=== PATIENT | male | born 1960 | race Caucasian/White ===

== ENCOUNTER 2016-04-08 11:18 | Inpatient (IN) ==
--- NOTE | 2016-04-07 21:07 | Discharge Summary ---
<Shilpa Salguero - Last Filed: 04/07/16 21:05> Date of Encounter: 04/11/16 - Discharge Diagnosis (1) Hip arthritis Priority: Primary Status: Acute (2) HTN (hypertension) Priority: Secondary Status: Chronic Qualifiers: Hypertension type: essential hypertension Qualified Code(s): I10 - Essential (primary) hypertension (3) Tobacco abuse Priority: Secondary Status: Chronic (4) Obesity Priority: Secondary Status: Acute Qualifiers: Obesity type: unspecified obesity type Obesity severity: unspecified obesity severity Qualified Code(s): E66.9 - Obesity, unspecified - Discharge Medications Home Medications: Naproxen Sodium [Aleve] 220 mg PO PRN PRN 12/20/15 [History] Aspirin Enteric Coated [Aspirin EC] 325 mg PO DAILY #21 tablet.dr 04/07/16 [Rx] OxyCODONE Immed Rel [Roxicodone 5 MG] 5 - 10 mg PO Q6HR PRN #40 tablet 04/07/16 [Rx] Amlodipine Besylate 10 mg PO DAILY 04/08/16 [History] Glucosamn/[place]/C/[facility]/[place] [[facility] Glucosamine Chondroitin Tb] 1 tab PO DAILY 04/08/16 [History] Lisinopril [Zestril] 40 mg PO DAILY 04/08/16 [History] Allergies/Adverse Reactions: Allergies No Known Allergies Allergy (Verified 12/20/15 09:33) Primary care physician: Kait Quiñones CNP - Patient Status Disposition: Home, Self-Care Condition: Good - Discharge Instructions Follow Up With: Zan Rutledge MD [Partnered Physician] - 05/07/16 9:10 am Shilpa Salguero PAC [Physician Hand Roller] - 04/18/16 9:30 am Kait Quiñones CNP [Primary Care Provider] - 05/14/16 9:00 am - Hospital Course Hospital course: Mr. Newman is a 55 year old male - Time Spent with Patient Total time spent providing and/or coordinating discharge services: <Zan Rutledge - Last Filed: 04/10/16 08:02> Date of Encounter: 04/10/16 Time of Encounter: 08:02 - Discharge Diagnosis (1) Hip arthritis Priority: Primary Status: Acute (2) Obesity Priority: Secondary Status: Acute Qualifiers: Obesity type: unspecified obesity type Obesity severity: unspecified obesity severity Qualified Code(s): E66.9 - Obesity, unspecified (3) HTN (hypertension) Priority: Secondary Status: Chronic Qualifiers: Hypertension type: essential hypertension Qualified Code(s): I10 - Essential (primary) hypertension (4) Tobacco abuse Priority: Secondary Status: Chronic Primary care physician: Kait Quiñones CNP - Patient Status Functional capacity at discharge: uses cane/walker Overall status at discharge: patient is progressing back to baseline - Hospital Course Hospital course: Mr. Newman is a 55 year old male The patient had an uneventful postoperative course. They received antibiotics and physical therapy and were discharged in stable condition. There will follow -up in the office in 2 weeks. Aspirin DVT prophylaxis - Time Spent with Patient Total time spent providing and/or coordinating discharge services:
[2016-04-08] MEDS ORDERED: CeFAZolin Pre 2,000 MG/100 ML 2,000 MG/100 ML BAG IVPB ONE (11:55)
[2016-04-08] MEDS ORDERED: Ringers Solution, Lactated 1,000 ML IVC SCH ×2 (12:00→17:25)
--- NOTE | 2016-04-08 12:03 | History & Physical Report ---
Date of Encounter: 04/08/16 Time of Encounter: 12:03 24 Hour HP Update - Instructions Instructions: If the History and Physical is less than 30 days old and was completed prior to A.M. admission and or procedure and has NOT been updated on calendar day of procedure please complete this update prior to performing procedure. - Update Patient reports changes in Medical Condition: No Changes in assessment/condition: No Changes in Medication: No Preop tests/diagnostics Reviewed: Yes Surgery Remains Indicated: Yes Consent for Planned Operative Procedure(s) Verified: Yes - Pre-Operative Checklist Preoperative Checklist Indicated: No Prophylactic Antibiotic Ordered: Yes Is VTE Prophylaxis Indicated?: Yes
[2016-04-08] MEDS ORDERED: Albuterol 2.5 MG/3 ML NEBULIZER IH ONE (12:10)
[2016-04-08] MEDS ORDERED: Albuterol 2.5 MG/3 ML NEBULIZER ONE (12:17)
--- NOTE | 2016-04-08 13:06 | Anesthesia Evaluation PreOp ---
Date of Encounter: 04/08/16 Time of Encounter: 12:35 - Past History Planned Operation: Left Total Hip Arthroplasty Cardiac History: HTN Pulmonary History: Smoker (38 years), Snore PHARMACY TECHNICIAN ASSISTANT History: Denies Any Significant HX Other Medical History: Denies Any Significant HX Anesthesia History: Past Anesthesia (no prior surgery) Alcohol Use: none Drug use: none Medications and Allergies Naproxen Sodium [Aleve] 220 mg PO PRN PRN 12/20/15 [History] Aspirin Enteric Coated [Aspirin EC] 325 mg PO DAILY #21 tablet.dr 04/07/16 [Rx] OxyCODONE Immed Rel [Roxicodone 5 MG] 5 - 10 mg PO Q6HR PRN #40 tablet 04/07/16 [Rx] Amlodipine Besylate 10 mg PO DAILY 04/08/16 [History] Glucosamn/[place]/C/[place] [[facility] Glucosamine Chondroitin Tb] 1 tab PO DAILY 04/08/16 [History] Lisinopril [Zestril] 40 mg PO DAILY 04/08/16 [History] Allergies No Known Allergies Allergy (Verified 12/20/15 09:33) - Meds/Allergy Pre-op Review Medications Reviewed: Yes Allergies Reviewed: Yes Beta Blockers on Current Med List: No Anesthesia Results - Labs Laboratory Tests 03/28/16 03/28/16 03/28/16 10:20 10:20 10:20 WBC 12.6 H Hgb 16.8 Hct 50.1 Plt Count 603 H PT 11.6 INR 1.1 APTT 35.9 Sodium 141 Potassium 4.2 BUN 19 Creatinine 0.90 - Imaging EKG: report reviewed (03/28/2016 SR, NSST abnormality) Anesthesia Exam O2 Sat Height 1.7 m Height 1.7 m Height 1.7 m Weight 97.976 kg Weight 97.976 kg Weight 97.976 kg O2 Sat by Pulse Oximetry 95 O2 Sat by Pulse Oximetry 95 O2 Sat by Pulse Oximetry 95 Vital Signs Temp Pulse Resp BP Pulse Ox 97.9 F 71 18 148/89 95 04/08/16 11:37 04/08/16 11:37 04/08/16 11:37 04/08/16 11:37 04/08/16 11:37 Height: 5'7'' Weight: 216 lbs NPO (# of Hours): 8 Pain Scale: 0 Pain Scale Used: Numeric (1 - 10) - HEENT Pupil (Motor): EOMI Mallampati: II Teeth: Missing, Poor dentition (loose lower front tooth) Oral Opening: Greater than 3 - PHARMACY TECHNICIAN ASSISTANT LOC: Oriented PHARMACY TECHNICIAN ASSISTANT Motor: Normal RUE, Normal LUE, Normal RLE, Normal LLE, Normal Face PHARMACY TECHNICIAN ASSISTANT Sensory: Normal: RUE, LUE, RLE, LLE, Face - Cardiac Rhythm: Regular Murmur: None - Pulmonary Breath Sounds: bilateral Clear Respiratory Effort: Symmetrical Anesthesia Assess/Plan ASA Score: 2 Modified Vish Scale for Level of Consciousness: Cooperative, oriented, and tranquil Anesthetic Plan: General Monitoring Plan: Standard Monitors Recovery Plan: PACU
[2016-04-08] MEDS ORDERED: *HR* Propofol 200 MG/20 ML VIAL IVP ONE (13:55)
[2016-04-08] MEDS ORDERED: *HR* Rocuronium Bromide 50 MG/5 ML VIAL ONE (13:55)
[2016-04-08] MEDS ORDERED: Dexamethasone 4 MG/ML VIAL ONE (13:55)
[2016-04-08] MEDS ORDERED: Lidocaine -MPF 4% 5 ML AMPUL ONE (13:55)
[2016-04-08] MEDS ORDERED: Ondansetron 4 MG/2 ML VIAL ONE (13:55)
[2016-04-08] MEDS ORDERED: *HR* FentaNYL (PF) 100 MCG/2 ML VIAL ONE ×3 (13:55→15:32)
[2016-04-08] MEDS ORDERED: *HR* Succinylcholine 200 MG/10 ML VIAL IVP ONE (13:55)
[2016-04-08] MEDS ORDERED: *HR* Promethazine 25 MG/ML VIAL IVP PRN (13:58)
[2016-04-08] MEDS ORDERED: *HR* Labetalol 100 MG/20 ML MDV IVP PRN (13:58)
[2016-04-08] MEDS ORDERED: *HR* Morphine 10 MG/ML VIAL ONE ×2 (15:26→15:31)
--- NOTE | 2016-04-08 16:02 | Orthopedic Operative Note ---
Date of procedure: 04/08/16 Pre-op diagnosis: Left hip arthritis Post-op diagnosis: same Procedure: Procedure: Left Total Hip Replacment Estimated blood loss: 200 cc Hardware: Biomet DM Cup: 56 G7 fin cup Femoral size 12 echo full profile lateralized stem Head: +6 head with Nancy Procedural Notes: Grade 4 arthritic changes femoral head acetabular socket. Operative procedure: The patient was brought to the operating room and placed on the operating room table. After general anesthesia was administered the patient was placed in the lateral decubitus position with the operative leg up. All pressure points were padded appropriately and the head was stabilized in the neutral position. The operative extremity was prepped and draped in the sterile surgical fashion patient received IV antibiotic prior to skin incision. A standard posterior approach is made to the operative hip, the incision was made through the skin and subcutaneous tissue hemostasis was obtained with Bovie cautery. Using careful sharp dissection the fascia was identified and incised exposing the external rotators. The external rotators were released off the greater trochanter and tagged with #2 FiberWire suture. The capsule was T'd open and the hip was brought into internal rotation. Patient noted to have grade 4 arthritic changes femoral head. The femoral neck cut was made at the appropriate level. An anterior capsulotomy was performed for the anterior retractor. Soft tissues removed from the acetabulum. Patient noted to have grade 4 arthritic changes acetabulum. Acetabulum was first reamed medially, and then reamed in 15 degrees of anteversion and 45 degrees off the horizontal. It was reamed up to the appropriate size 56 The appropriate-sized 56 acetabular cup was impacted in place in 15 degrees of anteversion and 45 degrees off the horizontal. This had good fit and fixation. The hip was brought back in to internal rotation and prepared with the box gluer followed by the canal finder followed by broaching process in 20 degrees anteversion. It was broached up to the appropriate size 12. The femoral implant was impacted in place in 20 degrees of anteversion. Trial reduction found the hip to be stable with +6 head and Nancy. The trials were removed and the real implants were impacted in place. The hip was reduced, patient had apparent equal leg lengths. The hip had excellent stability with forward flexion to 90 degrees adduction of 30 degrees and internal rotation of 60 degrees. The hip had no shuck. The hips after 2 minutes with a Betadine saline solution. It was irrigated out with 2 L of pulse irrigation. The external rotators were reattached to drill holes in the greater trochanter. Fascia was closed with a running #2 PDS suture. The deep tissue was irrigated and closed deep with #1 PDS suture superficially with 0 PDS suture and skin was closed with Dermabond and skin maverick. The patient was placed in a sterile dressing and abduction pillow. The patient was extubated and transferred to the recovery room in stable condition. Anesthesia: GETA Surgeon: Zan Rutledge Condition: stable Disposition: PACU
[2016-04-08] MEDS: *HR* HYDROmorphone (PF) 1 MG/ML SYRINGE IVP PRN ×3 (16:30→16:45)
[2016-04-08] MEDS ORDERED: *HR* HYDROmorphone (PF) 1 MG/ML SYRINGE ONE ×2 (16:32→16:47)
--- NOTE | 2016-04-08 16:58 | Anesthesia Evaluation Post Op ---
Date of Encounter: 04/08/16 Time of Encounter: 16:57 - Vital Signs Vital Signs: Vital Signs/O2 Sat, Most Current Temp Pulse Resp BP Pulse Ox 97.5 F L 77 16 167/85 95 04/08/16 16:51 04/08/16 16:51 04/08/16 16:51 04/08/16 16:51 04/08/16 16:51 - Lungs Lungs: Clear Ascult./Percussion - Airway Airway: Non-obstructed - Cardiovascular Regular Rate - Mental Status Mental Status: Alert & Oriented, Answers Appropriately - Pain Pain Scale: 4 Pain Scale used: Numeric (1 - 10) - Nausea Vomiting Nausea Vomiting: Not Present - Hydration Hydration: NPO, Has not voided - Discharge PostOp Status: Transfer Patient to floor
[2016-04-08 17:00] LABS: Hematocrit 46.4 % (37.5-50.1); Hemoglobin 15.2 g/dL (12.9-16.9)
[2016-04-08] MEDS ORDERED: Acetaminophen 325 MG TABLET PO PRN (17:25)
[2016-04-08] MEDS ORDERED: Sennosides 8.6 MG TABLET PO PRN (17:25)
[2016-04-08] MEDS ORDERED: Temazepam 15 MG CAPSULE PO PRN (17:25)
[2016-04-08] MEDS ORDERED: *HR* OxyCODONE Immed Rel 5 MG TABLET PO PRN (17:25)
[2016-04-08] MEDS ORDERED: Naloxone 0.4 MG/ML INJ IVP PRN (17:25)
[2016-04-08] MEDS ORDERED: *HR* HYDROmorphone (PF) 1 MG/ML SYRINGE IVP PRN (17:25)
[2016-04-08] MEDS ORDERED: MOM Conc 10 ML UD.LIQ PO PRN (17:25)
[2016-04-08] MEDS ORDERED: Ondansetron 4 MG/2 ML VIAL IVP PRN (17:25)
[2016-04-08] MEDS ORDERED: NON-FORMULARY MEDICATION 1 EACH EACH (Naproxen Sodium [Aleve] 220 MG) PO PRN (17:25)
[2016-04-08] MEDS: Ascorbic Acid 500 MG TABLET PO SCH (17:47)
[2016-04-08] MEDS ORDERED: *HR* Enoxaparin 30 MG/0.3 ML SYRINGE SQ SCH (18:00)
[2016-04-08] MEDS: ceFAZolin 2,000 MG in D5% in Water 100 ML IVPB SCH ×2 (18:16→23:29)
[2016-04-08] MEDS: *HR* Enoxaparin 30 MG/0.3 ML SYRINGE SQ SCH (18:17)
[2016-04-09] MEDS: *HR* OxyCODONE Immed Rel 5 MG TABLET PO PRN ×2 (05:29→17:34)
[2016-04-09] MEDS: *HR* Enoxaparin 30 MG/0.3 ML SYRINGE SQ SCH ×2 (05:29→17:32)
[2016-04-09 06:03] LABS: Hematocrit 42.9 % (37.5-50.1); Hemoglobin 14.2 g/dL (12.9-16.9)
[2016-04-09 06:12] LABS: BUN/Creatinine Ratio 18 (6-26); Blood Urea Nitrogen 23 mg/dL (8-26); Calcium 8.8 mg/dL (8.6-10.8); Carbon Dioxide 25 mEq/L (19-29); Chloride 104 mEq/L (98-109); Glucose 107 mg/dL (70-99); Osmolality,Calculated 286 (280-300); Potassium 5.2 mEq/L (3.5-4.5); Sodium 136 mEq/L (136-145); eGFR For African Americans > 60 (> 60); eGFR For Non-African Americans 59 (> 60)
--- NOTE | 2016-04-09 06:19 | Orthopedics Progress Note ---
Date of Encounter: 04/09/16 Time of Encounter: 06:19 - Assessment and Plan (1) Hip arthritis Current Visit: Yes Status: Acute (2) Obesity Current Visit: Yes Status: Acute Qualifiers: Obesity type: unspecified obesity type Obesity severity: unspecified obesity severity Qualified Code(s): E66.9 - Obesity, unspecified (3) HTN (hypertension) Current Visit: Yes Status: Chronic Qualifiers: Hypertension type: essential hypertension Qualified Code(s): I10 - Essential (primary) hypertension (4) Tobacco abuse Current Visit: Yes Status: Chronic Subjective Interval history: Patient was seen this morning doing well without complaints. Afebrile vital signs stable. Operative extremity: Neurovascularly intact Dressing clean dry and intact Calves nontender Assessment and plan: Continue with postoperative care Hematocrit 43 Objective Vital signs: Vital Signs Temp Pulse Resp BP Pulse Ox 04/09/16 03:44 97.7 F 63 16 158/80 95 04/09/16 03:00 97.7 F 67 13 120/72 97 04/09/16 00:12 97.7 F 67 13 120/72 97 04/08/16 22:00 96 04/08/16 20:45 98.1 F 66 12 122/72 96 04/08/16 20:14 97.6 F 61 9 120/72 95 04/08/16 19:45 99.1 F 65 12 118/79 95 04/08/16 18:26 99.0 F 67 16 111/69 94 L 04/08/16 18:01 98.8 F 63 16 122/63 95 04/08/16 17:30 98.7 F 70 16 130/73 95 04/08/16 17:11 97.5 F L 66 16 154/80 97 04/08/16 17:01 70 16 142/83 98 04/08/16 16:51 97.5 F L 77 16 167/85 95 04/08/16 16:41 77 16 154/83 96 04/08/16 16:31 80 16 161/100 95 04/08/16 16:21 97.5 F L 65 14 131/72 96 04/08/16 12:11 97.9 F 71 18 148/89 95 04/08/16 11:37 97.9 F 71 18 148/89 95 Intake and Output 04/08/16 04/08/16 04/09/16 15:59 23:59 07:59 Intake Total 100 / 100 100 / 100 800 / 800 Output Total 200 / 200 650 / 650 Balance 100 / 100 -100 / -100 150 / 150 Intake: IV Fluids 100 / 100 100 / 100 Ancef 2,000 MG In 100 / 100 Dextrose 5% 100 ML @ 200 mls/hr IVPB Q8HR ABISAI Rx#: [id number] Ancef Premix 2,000 MG/100 100 / 100 ML 2,000 mg In 100 ml @ 200 mls/hr IVPB PREOP ONE Rx#:[id number] Oral 800 / 800 Output: Urine 650 / 650 Estimated Blood Loss 200 / 200 Other: Weight 97.976 kg - Labs CBC & BMP: 04/09/16 05:25 04/09/16 05:25 Labs: Abnormal lab results Potassium 5.2 mEq/L (3.5-4.5) H 04/09/16 05:25 Creatinine 1.26 mg/dL (0.72-1.25) H 04/09/16 05:25 Est GFR (Non-Af Amer) 59 (> 60) L 04/09/16 05:25 Glucose 107 mg/dL (70-99) H 04/09/16 05:25 - VTE Documentation of Mechanical Device: Venous foot pump, device Consult Discharge Plan - Plan Referrals: Kait Quiñones CNP [Primary Care Provider] - 05/14/16 9:00 am
[2016-04-09] MEDS: Ascorbic Acid 500 MG TABLET PO SCH ×2 (09:31→17:32)
[2016-04-09] MEDS: amLODIPine 5 MG TABLET PO SCH (09:31)
[2016-04-09] MEDS: Lisinopril 20 MG TABLET PO SCH (09:31)
[2016-04-09] MEDS: Multivit/Ca/Min/Fe/FA 1 TAB TABLET PO SCH (09:32)
[2016-04-09] MEDS: (Glucosamn/Condroitn/C/Mn/Boron [Cvs Glucosamine Chon PO SCH (09:34)
[2016-04-10] MEDS: *HR* OxyCODONE Immed Rel 5 MG TABLET PO PRN ×2 (02:15→07:42)
[2016-04-10] MEDS: *HR* Enoxaparin 30 MG/0.3 ML SYRINGE SQ SCH (05:39)
[2016-04-10 07:00] LABS: Hematocrit 43.1 % (37.5-50.1); Hemoglobin 14.4 g/dL (12.9-16.9)
[2016-04-10 07:07] VITALS: BP 148/86
[2016-04-10 07:16] LABS: BUN/Creatinine Ratio 21 (6-26); Blood Urea Nitrogen 22 mg/dL (8-26); Calcium 9.3 mg/dL (8.6-10.8); Carbon Dioxide 22 mEq/L (19-29); Chloride 105 mEq/L (98-109); Glucose 102 mg/dL (70-99); Osmolality,Calculated 288 (280-300); Potassium 4.3 mEq/L (3.5-4.5); Sodium 137 mEq/L (136-145); eGFR For African Americans > 60 (> 60); eGFR For Non-African Americans > 60 (> 60)
[2016-04-10] MEDS: amLODIPine 5 MG TABLET PO SCH (07:43)
[2016-04-10] MEDS: Lisinopril 20 MG TABLET PO SCH (07:44)
[2016-04-10] MEDS: Ascorbic Acid 500 MG TABLET PO SCH (07:44)
[2016-04-10] MEDS: Multivit/Ca/Min/Fe/FA 1 TAB TABLET PO SCH (07:44)
[2016-04-10] MEDS: (Glucosamn/Condroitn/C/Mn/Boron [Cvs Glucosamine Chon PO SCH (07:45)
--- NOTE | 2016-04-10 08:03 | Orthopedics Progress Note ---
Date of Encounter: 04/10/16 Time of Encounter: 08:02 - Assessment and Plan (1) Hip arthritis Current Visit: Yes Status: Acute (2) Obesity Current Visit: Yes Status: Acute Qualifiers: Obesity type: unspecified obesity type Obesity severity: unspecified obesity severity Qualified Code(s): E66.9 - Obesity, unspecified (3) HTN (hypertension) Current Visit: Yes Status: Chronic Qualifiers: Hypertension type: essential hypertension Qualified Code(s): I10 - Essential (primary) hypertension (4) Tobacco abuse Current Visit: Yes Status: Chronic Subjective Interval history: Patient was seen this morning doing well without complaints. Afebrile vital signs stable. Operative extremity: Neurovascularly intact Dressing clean dry and intact Calves nontender Assessment and plan: Continue with postoperative care Hematocrit 43 discharged today Objective Vital signs: Vital Signs Temp Pulse Resp BP Pulse Ox 04/10/16 06:32 98.3 F 84 16 148/86 93 L 04/10/16 05:19 98.1 F 80 17 152/90 93 L 04/10/16 01:08 98.3 F 76 17 139/73 92 L 04/09/16 22:00 92 L 04/09/16 21:30 98.2 F 80 16 131/78 92 L 04/09/16 15:00 98.7 F 79 16 135/76 92 L 04/09/16 10:46 98.5 F 82 17 143/79 92 L Intake and Output 04/09/16 04/10/16 04/10/16 23:59 07:59 15:59 Output Total 100 / 100 Balance -100 / -100 Output: Urine 100 / 100 Other: # Voids 1 - Labs CBC & BMP: 04/10/16 06:17 04/10/16 06:17 Labs: Abnormal lab results Glucose 102 mg/dL (70-99) H 04/10/16 06:17 - VTE Documentation of Mechanical Device: Venous foot pump, device Consult Discharge Plan - Plan Referrals: Zan Rutledge MD [Partnered Physician] - 05/07/16 9:10 am Shilpa Salguero PAC [Physician Secretary To Board Of Commissioners] - 04/18/16 9:30 am Kait Quiñones CNP [Primary Care Provider] - 05/14/16 9:00 am
== END 2016-04-10 11:40 | disposition home or self-care (01) | DRG 301 ==
LOC: SAMDAY 11:18 → 3NENU 17:25
PROVIDERS: ADMIT Orthopaedic Surgery; ATTEND Orthopaedic Surgery